=== PATIENT | female | born 2000 | race Two or more races ===

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

== ENCOUNTER 2023-08-22 07:43 | Inpatient (IN) | payer OTHER ==
[~2023-08-22] VITALS: Wt 60.8 kg
[2023-08-22] MEDS ORDERED: GLUMETZA500 MG (08:00)
[2023-08-22] MEDS ORDERED: LEVOFLOXACIN750 MG PO (08:01)
[2023-08-22] MEDS ORDERED: TRI-LO-MARZIA1 EACH (08:01)
[2023-08-22] MEDS ORDERED: ALDACTONE25 MG PO (08:01)
[2023-08-22 09:07] LABS: HEMATOCRIT 36.3 % (36.0-45.00); HEMOGLOBIN 12.1 g/dL (12.0-15.00); MEAN CELL VOLUME 81.2 fL (80.00-100.00); MEAN CORPUSCULAR HEMOGLOBIN 27.2 pg (27.00-32.0); MEAN CORPUSCULAR HGB CONC 33.5 g/dl (32.0-36.0); PLATELET COUNT 516 K/uL (150-450); RED BLOOD COUNT 4.47 M/uL (4.00-6.00); RED CELL DISTRIBUTION WIDTH 13.4 % (11.5-14.5)
[2023-08-22 09:07] LABS: ABG PH 7.458 (7.35-7.45); ABG PO2 113.9 mmHg (80-100); ABG pCO2 31.5 mmHg (35-45); BICARBONATE 21.8 mmol/l (23-25); SaO2 98.7 %; Tco2 22.7 mmol/l
[2023-08-22 09:08] LABS: allen test SATISFACTORY; o2 21 %; puncture site RADIAL RIGHT
[2023-08-22 09:25] LABS: PH,URINE 6.5 (5.0-8.0); URINE APPEARANCE Clear; URINE BILIRRUBIN Negative (NEGATIVE); URINE BLOOD NHT; URINE COLOR Yellow; URINE GLUCOSE Negative (NEGATIVE); URINE LEUKOCYTE Negative; URINE NITRATE Negative; URINE PROTEIN Negative (NEGATIVE)
[2023-08-22 09:26] LABS: URINE BACTERIA 287.2 uL (0.0-1933); URINE EPITHELIAL CELLS 19.4 uL (0.0-38.8); URINE RBC 34.4 uL (0.0-20.8); URINE WBC 9.4 uL (0.0-23.2)
[2023-08-22 09:57] LABS: CALCIUM 9.8 mg/dL (8.5-10.1); CREATININE SERUM 0.71 mg/dL (0.55-1.02); GFR 102.94; POTASSIUM 3.25 mEq/L (3.5-5.1)
[2023-08-22 19:58] LABS: AMYLASE 50 U/L (25-115); LIPASE 40 U/L (13-75)
[2023-08-22 19:59] LABS: INR 1.06; PARTIAL THROMBOPLASTIN TIME 27.1 SECONDS (22.0-34.0); PROTHROMBIN TIME 11.1 SECONDS (9.0-11.5)
== END 2023-08-24 19:03 | disposition home or self-care (01) | DRG 419 ==
LOC: ER 07:43 → MEDI 18:07
PROVIDERS: Emergency Medicine; General Practice; Specialist; ADMIT Specialist; ATTEND Specialist
PROC: BW40ZZZ Ultrasonography of Abdomen (ICD-10-PCS; 2023-08-22)
PROC: BF13YZZ Fluoroscopy of Gallbladder and Bile Ducts using Other Contrast (ICD-10-PCS; 2023-08-23)
PROC: 0FT44ZZ Resection of Gallbladder, Percutaneous Endoscopic Approach (ICD-10-PCS; principal; 2023-08-23 15:00)
DX: K80.00 Calculus of gallbladder with acute cholecystitis without obstruction (principal)

== ENCOUNTER 2024-07-18 15:28 | Emergency (ER) | payer OTHER ==
[~2024-07-18] VITALS: Ht 152.4 cm; Wt 65.8 kg
[~2024-07-18 15:28] MED LIST: ALDACTONE25 MG PO; GLUMETZA500 MG; LEVOFLOXACIN750 MG PO; TRI-LO-MARZIA1 EACH
[2024-07-18 16:01] VITALS: BP 144/84; O2SAT 100
[2024-07-18] MEDS ORDERED: FAMOtidine 10 MG/ML (4ML VIAL) IV ONE (17:00)
[2024-07-18] MEDS ORDERED: KETOROLAC TROMETHAMINE 60 MG VIAL IM ONE (17:00)
[2024-07-18] MEDS ORDERED: 0.9 % SODIUM CHLORIDE 1,000 ML IV ONE (17:00)
[2024-07-18] MEDS ORDERED: ONDANSETRON HCL 2 MG/ML VIAL IV ONE (17:00)
[2024-07-18 17:32] LABS: HEMATOCRIT 36.7 % (36.0-45.00); HEMOGLOBIN 12.6 g/dL (12.0-15.00); MEAN CELL VOLUME 84.7 fL (80.00-100.00); MEAN CORPUSCULAR HEMOGLOBIN 29.2 pg (27.00-32.0); MEAN CORPUSCULAR HGB CONC 34.5 g/dl (32.0-36.0); PLATELET COUNT 380 K/uL (150-450); RED BLOOD COUNT 4.33 M/uL (4.00-6.00); RED CELL DISTRIBUTION WIDTH 13.1 % (11.5-14.5)
[2024-07-18 17:58] LABS: ALKALINE PHOSPHATASE 89 U/L (50-136); ALT/SGPT 44 U/L (12-78); ANION GAP 10 (10.0-20.0); AST/SGOT 22 U/L (15-37); BLOOD UREA NITROGEN 17 mg/dL (7-18); BUN CREA RATIO 15 (7.0-25.0); CALCIUM 9.2 mg/dL (8.5-10.1); CARBON DIOXIDE 27 mEq/L (21-32); CHLORIDE 108 mmol/L (98-107); CREATININE SERUM 1.13 mg/dL (0.55-1.02); GFR 59.67; GLOBULINA 3.7 G/DL (2.4-3.5); GLUCOSE FASTING 113 mg/dL (65-100); OSMOLALITY SERUM 284 MOSM/KG (275-295); POTASSIUM 3.78 mEq/L (3.5-5.1); SODIUM 141 mmol/L (136-145); TOTAL PROTEIN 7.7 gm/dL (6.4-8.2)
[2024-07-18 18:00] LABS: HCG QUANTITATIVE < 1 mUI/mL (1-3)
[2024-07-18 18:29] LABS: PH,URINE 5.5 (5.0-8.0); URINE APPEARANCE Clear; URINE BILIRRUBIN Negative (NEGATIVE); URINE BLOOD Small; URINE GLUCOSE Negative (NEGATIVE); URINE KETONE Trace (NEGATIVE); URINE LEUKOCYTE Negative; URINE NITRATE Negative; URINE PROTEIN Trace (NEGATIVE); URINE UROBILINOGEN 0.2 E.U./dl
[2024-07-18 18:33] LABS: URINE BACTERIA 621.1 uL (0.0-1933); URINE EPITHELIAL CELLS 29.6 uL (0.0-38.8); URINE RBC 39.6 uL (0.0-20.8)
[2024-07-18] MEDS ORDERED: TAMS0.4C PO (21:05)
[2024-07-18] MEDS ORDERED: ZOFRAN8 MG PO (21:05)
[2024-07-18] MEDS ORDERED: KETO10TA2 PO (21:05)
[2024-07-18] MEDS ORDERED: PEPCID AC20 MG PO (21:05)
[2024-07-18] MEDS ORDERED: CIPRO250 MG PO (21:05)
[2024-07-18] MEDS ORDERED: TAMSULOSIN HCL 0.4 MG CAP PO ONE (21:15)
[2024-07-18] MEDS ORDERED: CEFTRIAXONE SODIUM 1,000 MG VIAL IM ONE (21:15)
== END 2024-07-18 21:18 | disposition home or self-care (01) ==
LOC: ER 15:29
PROVIDERS: General Practice
DX: R10.31 Right lower quadrant pain (principal); N20.1 Calculus of ureter; K76.0 Fatty (change of) liver, not elsewhere classified; Z90.49 Acquired absence of other specified parts of digestive tract; E11.9 Type 2 diabetes mellitus without complications; Z79.84 Long term (current) use of oral hypoglycemic drugs